=== PATIENT | female | born 1965 | race Caucasian/White ===

== ENCOUNTER 2017-04-30 15:06 | Inpatient (IN) ==
[2017-04-30] MEDS ORDERED: ACETAMINOPHEN 325 MG TABLET PO PRN (16:12)
[2017-04-30] MEDS ORDERED: ONDANSETRON 4 MG/2 ML VIAL IV PRN (16:12)
[2017-04-30 18:41] LABS: Basophils % 0.4 % (0.0-0.8); Eosinophils # 0.1 10*3/uL (0.0-0.87); Eosinophils % 1.1 % (0.00-10.9); Hematocrit 42.3 VOL% (35.7-47.0); Hemoglobin 14.4 GM/DL (12.0-16.0); Immature Granulocytes % 0.4 %; Immature Granulocytes Absolute 0.02 #; Lymphocytes # 1.3 10*3/uL (1.4-4.0); Mean Corpuscular Hemoglobin 32 PG (27-34); Mean Corpuscular Volume 93.8 FL (87-102); Mean Platelet Volume 9.9 FL (9.6-12.0); Monocytes # 0.4 10*3/uL (0.11-0.8); Monocytes % 7.5 % (1.7-12.7); Neutrophils # 3.6 10*3/uL (1.4-7.4); Neutrophils % 66.6 % (38.7-73.9); Platelet Count 218 T/CUMM (130-400); Red Blood Count 4.51 MC/CUMM (3.8-5.5); Red Cell Distribution Width 11.9 % (9.3-17.3); White Blood Count 5.3 T/CUMM (4-12)
[2017-04-30 19:18] LABS: Albumin 4.2 G/DL (3.4-5.0); Bilirubin,Total 0.4 MG/DL (0.2-1.0); Calcium 9.1 MG/DL (8.5-10.1); Osmolality,Calculated 273.5 MOS/KG (273-304); Potassium 3.6 MMOL/L (3.5-5.1); Total Protein 7.3 G/DL (6.4-8.3)
[2017-04-30] MEDS ORDERED: clonazePAM 0.5 MG TABLET PO SCH ×2 (21:00)
[2017-04-30] MEDS: FAMOTIDINE 20 MG TABLET PO SCH (21:55)
[2017-04-30] MEDS: CIPROFLOXACIN INJ 200 MG in PREMIX 1 EACH IV SCH (21:55)
[2017-04-30] MEDS: SODIUM CHLORIDE 0.45% 1,000 ML IV SCH (21:55)
[2017-05-01 00:46] LABS: Apearance,Urine Slightly Hazy (Clear); Bilirubin,Urine Negative (Negative); Blood, Urine Small mg/dL (Negative); Glucose,Urine (UA) Negative (Negative); Ketones,Urine 20 mg/dL (Negative); Mucus,Urine Many /LPF (Occasional); Nitrite,Urine Negative (Negative); Protein,Urine Negative; RBC,Urine 1 /HPF (0-4); Squamous Epithelial Cell,Urine Occasional /HPF (0-10); Urine Color Yellow (Yellow); Urine Specific Gravity 1.013 (1.001-1.035); Urine Urobilinogen < 2.0 EU/DL (0.2-1.0); WBC,Urine 5 /HPF (0-6)
[2017-05-01 00:54] LABS: Barbiturates Screen,Urine Negative (Negative); Benzodiazepines Screen,Urine Negative (Negative); Cannabinoid Screen,Urine Negative (Negative); Opiate Screen,Urine Negative (Negative); Phencyclidine Screen,Urine Negative (Negative)
[2017-05-01 06:50] LABS: Calcium 8.9 MG/DL (8.5-10.1); Osmolality,Calculated 277.3 MOS/KG (273-304); Potassium 3.6 MMOL/L (3.5-5.1)
[2017-05-01] MEDS: FAMOTIDINE 20 MG TABLET PO SCH ×2 (09:07→21:45)
[2017-05-01] MEDS: RIVAROXABAN 20 MG TABLET PO SCH (09:07)
[2017-05-01] MEDS: CIPROFLOXACIN INJ 200 MG in PREMIX 1 EACH IV SCH ×2 (09:08→21:46)
[2017-05-01] MEDS: SODIUM CHLORIDE 0.45% 1,000 ML IV SCH ×2 (10:39→12:57)
[2017-05-01 11:54] LABS: Troponin I Only < 0.015 NG/ML (0.00-0.045)
[2017-05-01 13:06] LABS: Troponin I Only < 0.015 NG/ML (0.00-0.045)
[2017-05-01 15:55] LABS: Troponin I Only < 0.015 NG/ML (0.00-0.045)
[2017-05-01] MEDS: clonazePAM 0.5 MG TABLET PO SCH (21:46)
[2017-05-02] MEDS: SODIUM CHLORIDE 0.45% 1,000 ML IV SCH ×2 (03:17→10:40)
[2017-05-02 07:22] LABS: Calcium 8.5 MG/DL (8.5-10.1); Osmolality,Calculated 277.3 MOS/KG (273-304)
[2017-05-02] MEDS: FAMOTIDINE 20 MG TABLET PO SCH ×2 (10:39→21:37)
[2017-05-02] MEDS: RIVAROXABAN 20 MG TABLET PO SCH (10:40)
[2017-05-02] MEDS: clonazePAM 0.5 MG TABLET PO SCH ×2 (10:40→21:37)
[2017-05-02] MEDS: CIPROFLOXACIN INJ 200 MG in PREMIX 1 EACH IV SCH ×2 (10:40→21:36)
[2017-05-03 07:53] LABS: Total Protein (Chem) 6.2 G/DL (6.4-8.3)
[2017-05-03] MEDS: FAMOTIDINE 20 MG TABLET PO SCH (08:01)
[2017-05-03] MEDS: clonazePAM 0.5 MG TABLET PO SCH (08:02)
[2017-05-03] MEDS: RIVAROXABAN 20 MG TABLET PO SCH (08:02)
[2017-05-03] MEDS: CIPROFLOXACIN INJ 200 MG in PREMIX 1 EACH IV SCH (08:02)
[2017-05-03 10:49] LABS: Albumin (SPE) 4.1 G/DL (3.2-5.3)
[2017-05-03 10:50] LABS: Albumin (SPE) Rel % 66.6 %; Alpha 1 (SPE) 0.2 G/DL (0.1-0.4); Alpha 1 (SPE) Rel % 2.6 %; Alpha 2 (SPE) 0.6 G/DL (0.4-1.0); Alpha 2 (SPE) Rel % 10.3 %; Beta (SPE) 0.6 G/DL (0.5-1.1); Beta (SPE) Rel % 9.5 %; Gamma (SPE) 0.7 G/DL (0.7-1.7)
[2017-05-03 11:24] VITALS: BP 128/78
[2017-05-03 23:21] LABS: IgA Serum (MAYO) 116 mg/dL (61 - 356)
[2017-05-06 12:10] LABS: Tissue Transglutaminase IgA Ab < 1.2 U/mL
== END 2017-05-03 16:42 | disposition home or self-care (01) | DRG 392 ==
LOC: N.5E 17:00
PROVIDERS: ADMIT Internal Medicine; ATTEND Internal Medicine